=== PATIENT | female | born 1995 | race Caucasian/White ===

== ENCOUNTER 2020-04-25 03:39 | Inpatient (IN) ==
[2020-04-25] MEDS ORDERED: BUTORPHANOL 2 MG/ML VIAL IM PRN (04:49)
[2020-04-25] MEDS ORDERED: PROMETHAZINE 25 MG/1 ML VIAL IM PRN (04:49)
[2020-04-25] MEDS ORDERED: MEPERIDINE 50 MG/1 ML VIAL IV PRN (05:31)
[2020-04-25] MEDS ORDERED: BUTORPHANOL 2 MG/ML VIAL IV PRN (05:31)
[2020-04-25] MEDS ORDERED: ONDANSETRON 4 MG/2 ML VIAL IV PRN ×2 (05:31→12:44)
[2020-04-25] MEDS ORDERED: CITRIC ACID/SODIUM CITRATE 30 ML UDCUP PO ONE (05:34)
[2020-04-25] MEDS ORDERED: FAMOTIDINE 20 MG/2 ML VIAL IV ONE (05:34)
[2020-04-25] MEDS ORDERED: ePHEDrine 50 MG/ML AMP IV PRN (05:34)
[2020-04-25] MEDS ORDERED: NALOXONE 0.4 MG/ML VIAL IV PRN (05:34)
[2020-04-25] MEDS: LACTATED RINGERS 1,000 ML IV SCH ×2 (05:55→06:39)
[2020-04-25 05:56] LABS: Basophils # 0.1 10*3/uL (0.0-0.2); Basophils % 0.4 % (0.0-0.8); Eosinophils # 0.2 10*3/uL (0.0-0.87); Eosinophils % 1.1 % (0.00-10.9); Hematocrit 34.6 VOL% (35.7-47.0); Hemoglobin 10.3 GM/DL (12.0-16.0); Immature Granulocytes Absolute 0.26 #; Lymphocytes # 1.7 10*3/uL (1.4-4.0); Mean Corpuscular HGB Conc 29.8 GM/DL (32-36); Mean Corpuscular Volume 83.4 FL (87-102); Monocytes % 6.4 % (1.7-12.7); Neutrophils % 77.1 % (38.7-73.9); Platelet Count 297 T/CUMM (130-400); Red Blood Count 4.15 MC/CUMM (3.8-5.5); Red Cell Distribution Width 16.6 % (9.3-17.3); White Blood Count 13.2 T/CUMM (4-12)
[2020-04-25] MEDS ORDERED: fentaNYL 2 MCG/ROPIV 0.2% EPID 100 ML EPIDURAL SCH (06:00)
[2020-04-25 06:26] LABS: Albumin 2.2 G/DL (3.4-5.0); Bilirubin,Total 0.4 MG/DL (0.2-1.0); Calcium 9.5 MG/DL (8.5-10.1); Total Protein 7.3 G/DL (6.4-8.3)
[2020-04-25] MEDS ORDERED: TRANEXAMIC ACID 1,000 MG/10 ML VIAL ONE (08:43)
[2020-04-25] MEDS ORDERED: miSOPROStoL 200 MCG TABLET ONE (08:43)
[2020-04-25] MEDS ORDERED: CARBOPROST TROMETHAMINE 250 MCG/ML AMP IM ONE (08:44)
[2020-04-25] MEDS ORDERED: METHYLERGONOVINE 0.2 MG/1 ML AMP ONE (08:44)
[2020-04-25] MEDS ORDERED: OXYTOCIN/LR 20 UNIT/1,000 ML BAG IV ONE ×3 (08:44→12:44)
[2020-04-25 10:02] LABS: Apearance,Urine CLEAR (Clear); Bacteria,Urine Few /HPF (Few); Bilirubin,Urine Negative (Negative); Blood, Urine Small mg/dL (Negative); Glucose,Urine (UA) Negative (Negative); Ketones,Urine Negative (Negative); Nitrite,Urine Negative (Negative); Protein,Urine Negative; RBC,Urine 4 /HPF (0-4); Squamous Epithelial Cell,Urine Occasional /HPF (0-10); Urine Color Yellow (Yellow); Urine Urobilinogen < 2.0 EU/DL (0.2-1.0); WBC,Urine 1 /HPF (0-6)
[2020-04-25] MEDS ORDERED: ACETAMINOPHEN 500 MG TABLET PO PRN (11:28)
[2020-04-25] MEDS: IBUPROFEN 800 MG TABLET PO PRN ×2 (11:45→19:11)
[2020-04-25] MEDS ORDERED: MEASLES/MUMPS/RUBELLA VACCINE 0.5 ML VIAL SUBCUT ONE (12:44)
[2020-04-25] MEDS ORDERED: oxyCODONE/ACETAMINOPHEN 5-325 MG TABLET PO PRN ×2 (12:44)
[2020-04-25] MEDS ORDERED: WITCH HAZEL PADS 100/JAR TOP PRN (12:44)
[2020-04-25] MEDS ORDERED: ACETAMINOPHEN 325 MG TABLET PO PRN (12:44)
[2020-04-25] MEDS ORDERED: BISACODYL 10 MG SUPP RECTAL PRN (12:44)
[2020-04-25] MEDS ORDERED: RHO(D) IMMUNE GLOBULIN 300 MCG SYRINGE IM ONE (12:44)
[2020-04-25] MEDS ORDERED: DIPH/TET/ACEL PERT BOOSTER VACCINE 0.5 ML VIAL IM ONE (12:44)
[2020-04-25] MEDS ORDERED: HYDROCORTISONE 2.5% RECTAL CREAM 30 GM TUBE TOP PRN (12:44)
[2020-04-25] MEDS ORDERED: LANOLIN 50% CREAM 0.3 OZ TUBE TOP PRN (12:44)
[2020-04-25] MEDS ORDERED: IBUPROFEN 800 MG TABLET PO PRN (12:44)
[2020-04-25] MEDS: FLUoxetine 20 MG CAPSULE PO SCH (15:51)
[2020-04-25] MEDS: DOCUSATE SODIUM 100 MG CAPSULE PO SCH (20:24)
[2020-04-25] MEDS: BENZOCAINE 20%/MENTHOL 0.5% SPRAY 56 GM CAN TOP PRN (20:24)
[2020-04-26 04:51] LABS: Basophils % 0.2 % (0.0-0.8); Eosinophils # 0.1 10*3/uL (0.0-0.87); Eosinophils % 0.9 % (0.00-10.9); Hematocrit 30.8 VOL% (35.7-47.0); Hemoglobin 9.2 GM/DL (12.0-16.0); Immature Granulocytes % 1.3 %; Lymphocytes # 2.1 10*3/uL (1.4-4.0); Lymphocytes % 14.1 % (21.3-54.2); Mean Corpuscular HGB Conc 29.9 GM/DL (32-36); Mean Corpuscular Volume 83.5 FL (87-102); Monocytes % 6.5 % (1.7-12.7); Platelet Count 253 T/CUMM (130-400); Red Blood Count 3.69 MC/CUMM (3.8-5.5); Red Cell Distribution Width 16.7 % (9.3-17.3); White Blood Count 15.2 T/CUMM (4-12)
[2020-04-26] MEDS: IBUPROFEN 800 MG TABLET PO PRN (07:32)
[2020-04-26] MEDS: FLUoxetine 20 MG CAPSULE PO SCH (07:45)
[2020-04-26 08:49] VITALS: BP 123/76
[2020-04-26] MEDS: DOCUSATE SODIUM 100 MG CAPSULE PO SCH (08:52)
[2020-04-26] MEDS: BENZOCAINE 20%/MENTHOL 0.5% SPRAY 56 GM CAN TOP PRN (10:15)
== END 2020-04-26 10:25 | disposition home or self-care (01) | DRG 560 ==
LOC: N.LDOUT 03:39 → N.LD 03:41 → N.OB 15:43
PROVIDERS: ADMIT Obstetrics & Gynecology; ATTEND Obstetrics & Gynecology